=== PATIENT | male | born 1980 | race Caucasian/White ===

== ENCOUNTER → 2022-03-12 08:40 | Outpatient (BNVA) | payer OTHER, SELFPAY | PROVIDERS: Family Provider Family Medicine; PCP Family Medicine; Visit Provider Nurse Practitioner Family | DX: N40.1 Benign prostatic hyperplasia with lower urinary tract symptoms (principal); N13.8 Other obstructive and reflux uropathy; N41.9 Inflammatory disease of prostate, unspecified | CPT/HCPCS: 81003; 87086 ==

== ENCOUNTER → 2022-05-01 13:04 | Outpatient (BNVA) | payer OTHER, SELFPAY | PROVIDERS: Family Provider Family Medicine; PCP Family Medicine; Visit Provider Urology | DX: N41.9 Inflammatory disease of prostate, unspecified (principal) | CPT/HCPCS: 81003 ==

== ENCOUNTER 2022-09-02 07:26 | Outpatient (CLI) | payer OTHER, SELFPAY ==
--- NOTE | 2022-09-02 | MR_ITS ---
WS: [id number] MRI CERVICAL SPINE NONCONTRAST HISTORY: TIA, NUMBNESS AND TINGLING OF LEFT ARM AND LEG COMPARISON: None available. Technique: Multiplanar, multisequence noncontrast imaging of the cervical spine. Normal cervical alignment with no compression fracture or significant disc space narrowing. Multifocal areas of abnormal T2 and FLAIR signal throughout the cervical cord beginning at the medull jordan cervical junction. Ill-defined areas of increased T2 signal at multiple levels with the largest e xtending over length of 2.1 cm centered at C4-C6. No cord atrophy or enlargement. Craniocervical junction, C1 and C2 relationship, odontoid process and soft tissues are normal. C2-C3: Normal. C3-C4: Mild osteophytic ridging with only mild encroachment on the RIGHT foramen. C4-C5: Mild facet joint arthritis. C5-C6: Normal. C6-C7: Normal. C7-T1: Normal. Paraspinal soft tissue are normal. MR/MR cervical spin wo con* [id number] IMPRESSION: 1. Multifocal areas of T2 and FLAIR signal hyperintensities throughout the cer vical cord beginning at the medullary cervical junction. Highly suspicious for demyelinating disease such as multiple sclerosis. Recommend follow-up neurology . Further evaluation with postcontrast cervical spine MRI and MRI brain with an d without contrast for an mass is recommended. 2. No significant stenosis.
== END 2022-09-02 07:27 | disposition home or self-care (01) ==
LOC: RAD 07:26
PROVIDERS: Family Provider Family Medicine; PCP Family Medicine; Visit Provider Family Medicine
DX: R20.0 Anesthesia of skin (principal); R20.2 Paresthesia of skin
CPT/HCPCS: 72141

== ENCOUNTER 2023-02-15 10:09 | Outpatient (RCR) | payer OTHER, SELFPAY ==
[2023-02-13 11:29] VITALS: BP 136/74; PULSE 68; RESP 18; TEMP 36.3; O2SAT 97
[2023-02-15 10:06] VITALS: BP 130/76; PULSE 58; RESP 16; TEMP 36.6; O2SAT 94
== END 2023-03-01 23:59 | disposition home or self-care (01) ==
LOC: GILAB 10:09
PROVIDERS: PCP Family Medicine; Visit Provider Family Medicine
DX: H46.9 Unspecified optic neuritis (principal)
CPT/HCPCS: 96365; J2930; J7050